=== PATIENT | female | born 1985 | race African-American/Black ===

== ENCOUNTER → 2021-11-29 | Emergency (ER) | payer MEDICAID ==
[~2021-11-29] VITALS: Ht 162.6 cm; Wt 82.0 kg
[2021-11-29 17:17] LABS: BASOPHILS % 0.6 % (0.0-2.0); EOSINOPHILS % 3.4 % (0.0-5.0); HEMATOCRIT. 30.4 % (36.0-48.0); HEMOGLOBIN. 9.5 g/dL (12.0-16.0); LYMPHOCYTES % 23.8 % (20.0-50.0); MEAN CORPUSCULAR HEMOGLOBIN 23.1 pg (28.0-32.0); MEAN CORPUSCULAR VOLUME 74.1 fL (81.0-99.0); MEAN PLATELET VOLUME 7.6 fl (7.4-10.4); MONOCYTES % 8.3 % (2.0-8.0); NEUTROPHILS % 63.9 % (40.0-76.0); PLATELET 376 x1000/uL (130-400); RED CELL DISTRIBUTION WIDTH 21.6 % (11.6-14.6)
[2021-11-29 17:23] LABS: CHLORIDE 107 mEq/L (98-107)
[2021-11-29 17:38] LABS: CLARITY URINE CLEAR (CLEAR); COLOR URINE YELLOW (YELLOW); KETONES URINE TRACE (NEGATIVE); LEUKOCYTE ESTERASE URINE NEGATIVE (NEGATIVE); NITRITE URINE NEGATIVE (NEGATIVE); OCCULT BLOOD URINE 2+ (NEGATIVE); PROTEIN URINE TRACE (NEGATIVE); SPECIFIC GRAVITY URINE 1.025 (1.005-1.030)
[2021-11-29 17:45] LABS: B-HCG QUANTITATIVE 70187 mIU/mL (<3)
[2021-11-29 19:35] VITALS: BP 125/77
== END ==
LOC: ER 13:47
DX: O20.0 Threatened abortion (principal); Z3A.01 Less than 8 weeks gestation of pregnancy
CPT/HCPCS: 36415; 76810; 80053; 81003; 81025; 84702; 85025; 86900; 99284